=== PATIENT | female | born 1995 | race Caucasian/White ===

== ENCOUNTER 2019-06-01 18:03 | Emergency (ER) | payer SELFPAY ==
--- NOTE | 2019-06-01 21:33 | RAD ---
RIGHT ANKLE TWO VIEWS: 06/01/19 A prior surgical procedure is seen affixing the distal fibula to the distal tibia. Thickening of the distal fibular shaft is most likely due to old trauma. No acute fracture was seen. The articular surf aces of the ankle are normal in appearance. IMPRESSION: Old changes but no acute finding. POS: HOME
--- NOTE | 2019-06-01 21:50 | RAD ---
RIGHT LEG TWO VIEWS: 06/01/19 The tibia and fibula appear intact, though old trauma is suggested in the distal fibular shaft with c ortical thickening. There has been a surgical fixation between the tibia and fibula distally in the p ast. IMPRESSION: No acute findings. POS: HOME
== END 2019-06-01 18:42 | disposition home or self-care (01) ==
LOC: BURERS 18:03
DX: S93.411A Sprain of calcaneofibular ligament of right ankle, initial encounter (principal); W17.89XA Other fall from one level to another, initial encounter